=== PATIENT | female | born 2000 | race Caucasian/White ===

== ENCOUNTER 2018-05-31 18:34 | Emergency (ER) | payer OTHER ==
[2018-05-31 19:58] VITALS: BP 118/73
--- NOTE | 2018-05-31 20:37 | UC ---
Throat Pain/Nasal Francisco J HPI - HPI Summary HPI Summary: patient was treated for strep, she was not tested because she is afriad of a throat swab. she presnet with fever and other flu like symptoms, is having stomach upset. - History of Current Complaint Chief Complaint: UCGeneralIllness Stated Complaint: CONGESTION,DIARRHEA,ST,SHANKAR Time Seen by Provider: 05/31/18 20:16 Hx Obtained From: Patient Hx Last Menstrual Period: 04/30/18 ?: No Onset/Duration: Sudden Onset Severity: Moderate Pain Intensity: 3 Associated Signs & Symptoms: Positive: Dysphagia, Sinus Discomfort, Fever, Rash - Allergies/Home Medications Allergies/Adverse Reactions: Allergies Allergy/AdvReac Type Severity Reaction Status Date / Time No Known Allergies Allergy Verified 05/31/18 19:45 Home Medications: Home Medications Dm/Acetaminophen/Doxylamine [Night Time Multi-Symptom] 2 cap PO BEDTIME PRN 10/12 [History Confirmed 05/31/18] Escitalopram Oxalate [Lexapro 20 mg] 20 mg PO DAILY 05/31/18 [History Confirmed 05/31/18] Ibuprofen TAB* [Advil TAB*] 600 mg PO Q6H PRN 05/31/18 [History Confirmed ] Norethindrone-E.estradiol-Iron [Junel Fe 04/15 1-20 mg-Mcg] 1 tab PO DAILY [History Confirmed 05/31/18] Penicillin VK 500 MG TAB(NF) [Penicillin VK 500 mg Tab] 500 mg PO BID 05/31/18 [ History Confirmed 05/31/18] PMH/Surg Hx/FS Hx/Imm Hx Previously Healthy: Yes - Surgical History Surgical History: None - Family History Known Family History: Positive: Hypertension - Social History Alcohol Use: Rare Substance Use Type: None Smoking Status (MU): Never Smoked Tobacco Review of Systems All Other Systems Reviewed And Are Negative: Yes Constitutional: Positive: Fever, Fatigue Skin: Positive: Rash Eyes: Positive: Negative ENT: Positive: Sore Throat, Ear Ache, Sinus Pain/Tenderness Respiratory: Positive: Cough Cardiovascular: Positive: Negative Gastrointestinal: Positive: Negative Motor: Positive: Negative Neurovascular: Positive: Negative Musculoskeletal: Positive: Myalgia Neurological: Positive: Negative Psychological: Positive: Negative Is Patient Immunocompromised?: No Physical Exam Triage Information Reviewed: Yes Appearance: Well-Nourished, Ill-Appearing, Pain Distress Vital Signs: Initial Vital Signs Temp 99.2 F 05/31/18 19:50 Pulse 79 05/31/18 19:50 Resp 15 05/31/18 19:50 BP 118/73 05/31/18 19:50 Pulse Ox 99 05/31/18 19:50 Vital Signs Reviewed: Yes Eye Exam: Normal ENT: Positive: Pharyngeal erythema, Nasal congestion, TMs normal, Tonsillar swelling Dental Exam: Normal Neck exam: Normal Respiratory Exam: Normal Respiratory: Positive: Chest non-tender, Lungs clear, Normal breath sounds Cardiovascular Exam: Normal Cardiovascular: Positive: RRR, No Murmur, Pulses Normal Abdominal Exam: Normal Abdomen Description: Positive: Nontender, No Organomegaly, Soft Musculoskeletal Exam: Normal Neurological Exam: Normal Psychological Exam: Normal Skin: Positive: Rashes - red bumpy rash on cheeks and back Throat Pain/Nasal Course/Dx - Course Course Of Treatment: hx obtained, exam performed ,meds reviewed, rapid strep invalid, patient refused a second test.and flu obtained and was negative. continued current antibiotic and start a probiotic to combat the N/V/D - Differential Dx/Diagnosis Differential Diagnosis/HQI/PQRI: Pharyngitis Provider Diagnosis: Pharyngitis, Fever, Diarrhea Discharge - Sign-Out/Discharge Documenting (check all that apply): Patient Departure All imaging exams completed and their final reports reviewed: No Studies - Discharge Plan Condition: Stable Disposition: HOME Patient Education Materials: Pharyngitis (ED) Referrals: No Primary Care Phys,NOPCP [Primary Care Provider] - Additional Instructions: 1. continue with the penicillin 2. ibuprofen and tylenol for pain and fever 3. I am giving you some zofran for nausea and I recommend a probiotic ( acidophillus) while taking the antibiotic and for about 2 weeks after. 4. Follow up if not improving after course of treatment. - Billing Disposition and Condition Condition: STABLE Disposition: Home
[2018-05-31 20:51] LABS: Influenza A Molecular NEGATIVE (Negative); Influenza B Molecular NEGATIVE (Negative)
== END 2018-05-31 21:07 | disposition home or self-care (01) ==
LOC: UCCORT 18:34
DX: J02.9 Acute pharyngitis, unspecified (principal); R50.9 Fever, unspecified; R19.7 Diarrhea, unspecified; R21 Rash and other nonspecific skin eruption; H92.09 Otalgia, unspecified ear
CPT/HCPCS: 99202; G0463